=== PATIENT | female | born 1970 | race Caucasian/White ===

== ENCOUNTER 2019-06-28 12:43 | Outpatient (CLI) | payer MEDICAID ==
[~2019-06-28] VITALS: Ht 152.4 cm; Wt 46.7 kg
[2019-06-28] MEDS ORDERED: GABAPENTIN300 MG ORAL (13:07)
[2019-06-28] MEDS ORDERED: OTC ALLERGY MED (13:07)
[2019-06-28 14:16] VITALS: BP 108/84
[2019-06-28 14:50] VITALS: BP 108/84
--- NOTE | 2019-06-28 16:00 | Consultation ---
DATE OF CONSULTATION: 06/28/2019 CONSULTING PHYSICIAN: Micha Warren M.D. CHIEF COMPLAINT: Pancreatitis. HISTORY OF PRESENT ILLNESS: This is a very pleasant 48-year-old female with past medical history of alcoholic pancreatitis, evidence of calcification of the pancreas on ultrasound, was referred to us for evaluation. The patient at this time she said she has stopped drinking since May. She is feeling a lot better. She does not have any symptoms of nausea, vomiting, abdominal pain, or diarrhea. She has minimal abdominal pain on the right side, positional, but not associated with meals. PAST MEDICAL HISTORY: 1. Alcohol abuse. 2. Neuropathy. PAST SURGICAL HISTORY: None. FAMILY HISTORY: Father has hypertension. SOCIAL HISTORY: The patient was a heavy drinker, quit in May. Denies any tobacco usage. Denies any IV drug abuse. ALLERGIES: To sulfa. MEDICATIONS: Please see medication reconciliation list. REVIEW OF SYSTEMS: A 10-point review of systems was performed and pertinent positives in HPI. PHYSICAL EXAMINATION: VITAL SIGNS: Temperature is 98.8, blood pressure 108/64, pulse 60, and respirations 20. HEENT: Normocephalic and atraumatic. Sclerae anicteric. NECK: Supple. No evidence of obvious lymphadenopathy. CARDIOVASCULAR: Regular rate and rhythm. Plus S1 and S2. LUNGS: Clear to auscultation bilaterally. ABDOMEN: Positive bowel sounds. Soft and nontender. No rebound. No guarding. No peritoneal sign. EXTREMITIES: No cyanosis, no clubbing, no edema. ASSESSMENT AND PLAN: This is a 48-year-old female with alcoholic pancreatic and calcification without any symptoms at this time. The patient was told at this time there is no need for any further imaging studies or any labs given her liver enzymes are normal. Her other rest of the labs also looks normal. The patient had stopped drinking, which is the best thing she has done and at this time she does not need to change her diet, nor she needs to be started on any medication. The patient was told to continue alcoholic avoidance and if she becomes symptomatic including nausea, vomiting, abdominal pain, significant weight loss or diarrhea, return back to us for evaluation of management of pancreatitis. The patient also was told to come back in four years for screening colonoscopy evaluation. Micha Rodrigo Warren DR: CADEN JOB#: [id number] CC:
== END 2019-06-28 15:47 | disposition home or self-care (01) ==
LOC: PAN 12:43
DX: K85.90 Acute pancreatitis without necrosis or infection, unspecified (principal); G62.9 Polyneuropathy, unspecified
CPT/HCPCS: G0463